=== PATIENT | male | born 1950 | race Caucasian/White ===

== ENCOUNTER 2020-11-04 09:12 | Emergency (ER) | payer MEDICARE, OTHER ==
[2020-11-04 09:50] LABS: CHLORIDE,CL 100 mmol/L (98-107); SODIUM,NA 137 mmol/L (136-145)
--- NOTE | 2020-11-04 10:26 | EDM.PDOC ---
ED HPI GENERAL MEDICAL PROBLEM - General Chief Complaint: Neuro Symptoms/Deficits Stated Complaint: STROKE CODE Time Seen by Provider: 11/04/20 09:18 Source of Information: Reports: Patient, EMS, Family - History of Present Illness INITIAL COMMENTS - FREE TEXT/NARRATIVE: Pt brought to ER via EMS with left sided weakness Began 2 days ago Last known well time was 11/01/20 at bedtime Woke up 11/02 with weakness and had difficulty walking Yesterday pt unable to support self in the evening and spent the night on the floor per Pt with left face droop and flaccid left side Has never seen a doctor but states his usual BP is 200 Onset: Gradual Duration: Day(s):, Getting Worse Location: Reports: Generalized ED ROS GENERAL - Review of Systems Review Of Systems: See Below Constitutional: Reports: No Symptoms HEENT: Reports: No Symptoms Respiratory: Reports: No Symptoms Cardiovascular: Reports: No Symptoms GI/Abdominal: Reports: No Symptoms Musculoskeletal: Reports: No Symptoms Skin: Reports: No Symptoms Neurological: Reports: Trouble Speaking, Difficulty Walking, Weakness, Change in Speech, Gait Disturbance ED EXAM, NEURO - Physical Exam Exam: See Below General Appearance: Alert, WD/WN, Mild Distress Eye Exam: Bilateral Eye: EOMI, PERRL Ears: Normal TMs Nose: Normal Inspection Throat/Mouth: Normal Oropharynx Head Exam: Atraumatic Neck: Supple Respiratory/Chest: Lungs Clear Cardiovascular: Regular Rate, Rhythm GI/Abdominal: Soft, Non-Tender Neurological: Alert, Oriented x 3, Other (Stroke scale 9 Pt with left face droop and flaccid left side) Extremities: Normal Inspection Psychiatric: Normal Affect Skin Exam: Warm, Dry, Intact Course - Orders/Labs/Meds Orders: Active Orders 24 hr Category Date Time Status EKG Documentation Completion [RC] ASDIRECTED Care 11/04/20 09:19 Active Head wo Cont [CT] Stat Exams 11/04/20 09:13 Taken Labs: Laboratory Tests 11/04/20 11/04/20 11/04/20 Range/Units 09:21 09: 09:21 WBC 9.0 (4.0-10.2) K/uL RBC 6.29 H (4.33-5.41) M/uL Hgb 16.7 (13.1-16.8) g/dL Hct 48.8 (39.0-49.0) % MCV 77.6 L (84.0-98.0) fL MCH 26.6 L (28.2-33.3) pg MCHC 34.2 (31.7-36.0) g/dL RDW 14.4 H (11.2-14.1) % Plt Count 172 (150-350) K/uL Neut % (Auto) 60.7 (45.0-80.0) % Lymph % (Auto) 26.2 (10.0-50.0) % [place] % (Auto) 10.0 (2.0-14.0) % Eos % (Auto) 2.8 (0.0-5.0) % Baso % (Auto) 0.3 (0.0-2.0) % Neut # (Auto) 5.48 (1.40-7.00) K/uL Lymph # (Auto) 2.37 (0.50-3.50) K/uL [place] # (Auto) 0.90 (0.00-1.00) K/uL Eos # (Auto) 0.25 (0.00-0.50) K/uL Baso # (Auto) 0.03 (0.00-0.20) K/uL PT 9.7 (9.5-12.0) SEC INR 1.0 Sodium 137 (136-145) mmol/L Potassium 3.9 (3.5-5.1) mmol/L Chloride 100 (98-107) mmol/L Carbon Dioxide 23.3 (21.0-32.0) mmol/L BUN 15 (7-18) mg/dL Creatinine 0.81 (0.51-1.17) mg/dL Est Cr Clr Drug Dosing TNP Estimated GFR (MDRD) > 60 mL/min Glucose 373 H (74-106) mg/dL Calcium 9.3 (8.5-10.1) mg/dL Magnesium 2.1 (1.8-2.4) mg/dL Total Bilirubin 1.4 H (0.2-1.0) mg/dL AST 17 (15-37) U/L ALT 30 (12-78) U/L Alkaline Phosphatase 77 (46-116) IU/L Troponin I 0.039 (0.000-0.056) ng/mL Total Protein 8.1 (6.4-8.2) g/dL Albumin 3.7 (3.4-5.0) g/dL - Re-Assessments/Exams Free Text/Narrative Re-Assessment/Exam: 11/04/20 10:[address] per radiologist no acute bleed D/W Dr Lyons Stroke Neurologist [facility] Will accept in transfer Departure - Departure Time of Disposition: 10:30 Disposition: DC/Tfer to Acute Hospital 02 Clinical Impression: Cerebrovascular accident (CVA) Qualifiers: CVA mechanism: unspecified Qualified Code(s): I63.9 - Cerebral infarction, unspecified - Discharge Information Referrals: PCP,Unknown [Primary Care Provider] - - My Orders Last 24 Hours: My Active Orders 11/04/20 09:13 Head wo Cont [CT] Stat 11/04/20 09:19 EKG Documentation Completion [RC] ASDIRECTED - Assessment/Plan Last 24 Hours: My Active Orders 11/04/20 09:13 Head wo Cont [CT] Stat 11/04/20 09:19 EKG Documentation Completion [RC] ASDIRECTED
== END 2020-11-04 10:53 ==
LOC: LL.ED 09:12
DX: I63.9 Cerebral infarction, unspecified (principal)
CPT/HCPCS: 36415; 70450; 80053; 83735; 84484; 85025; 85610; 93005; 99283; 99285-25

== ENCOUNTER 2023-09-14 13:09 | Emergency (ER) | payer MEDICARE, OTHER ==
[2023-09-14] MEDS ORDERED: Sodium Chloride 0.9% 10 ML Syringe FLUSH PRN (13:18)
[2023-09-14 13:37] LABS: BASOPHILS ABSOLUTE AUTO 0.03 K/uL (0.00-0.20); BASOPHILS PERCENT AUTO 0.4 % (0.0-2.0); EOSINOPHILS ABSOLUTE AUTO 0.46 K/uL (0.00-0.50); EOSINOPHILS PERCENT AUTO 5.5 % (0.0-5.0); HEMATOCRIT 37.7 % (39.0-49.0); HEMOGLOBIN 12.3 g/dL (13.1-16.8); LYMPHOCYTES ABSOLUTE AUTO 2.56 K/uL (0.50-3.50); LYMPHOCYTES PERCENT AUTO 30.7 % (10.0-50.0); MEAN CORPUSCULAR HGB CONC 32.6 g/dL (31.7-36.0); MEAN CORPUSCULAR VOLUME 85.7 fL (84.0-98.0); MONOCYTES ABSOLUTE AUTO 0.87 K/uL (0.00-1.00); MONOCYTES PERCENT AUTO 10.4 % (2.0-14.0); NEUTROPHILS ABSOLUTE AUTO 4.41 K/uL (1.40-7.00); PLATELET COUNT,PLT 141 K/uL (150-350); RED CELL DISTRIBUTION WIDTH 14.4 % (11.2-14.1); WHITE BLOOD CELL COUNT,WBC 8.3 K/uL (4.0-10.2)
[2023-09-14 14:05] LABS: ALBUMIN 3.5 g/dL (3.4-5.0); ANION GAP 9.1 meq/L (7-15); BILIRUBIN TOTAL 1.1 mg/dL (0.2-1.0); CARBON DIOXIDE,CO2 26.9 mmol/L (21.0-32.0); CREATININE 1.41 mg/dL (0.51-1.17); EST CRCL DRUG DOSING (CG) 42.11 mL/min; MAGNESIUM 2.3 mg/dL (1.8-2.4); POTASSIUM,K 4.2 mmol/L (3.5-5.1); PROTEIN TOTAL,TP 7.2 g/dL (6.4-8.2)
[2023-09-14 14:17] LABS: PROTHROMBIN TIME 9.8 SEC (9.0-11.1)
[2023-09-14] MEDS ORDERED: Clopidogrel 75 MG Tab PO ONE (14:22)
[2023-09-14] MEDS ORDERED: Clopidogrel 75 MG Tab ONE (14:37)
== END 2023-09-14 15:00 ==
LOC: LL.ED 13:09
DX: R29.818 Other symptoms and signs involving the nervous system (principal); I10 Essential (primary) hypertension; E78.00 Pure hypercholesterolemia, unspecified; K21.9 Gastro-esophageal reflux disease without esophagitis; E11.9 Type 2 diabetes mellitus without complications; Z86.16 Personal history of COVID-19; Z79.82 Long term (current) use of aspirin; Z79.84 Long term (current) use of oral hypoglycemic drugs; Z79.899 Other long term (current) drug therapy; Z86.73 Personal history of transient ischemic attack (TIA), and cerebral infarction without residual deficits
CPT/HCPCS: 36415; 70450; 71045; 80053; 83605; 83735; 83880; 84484; 85025; 85379; 85610; 85730; 93005; 93010; 99284; 99285; A9270-GY

== ENCOUNTER 2023-11-16 16:10 | Observation (INO) | payer MEDICARE ==
[2023-11-16] MEDS ORDERED: Sodium Chloride 0.9% 10 ML Syringe FLUSH PRN (16:24)
[2023-11-16 17:12] LABS: INFLUENZA A NAA NEGATIVE (NEGATIVE); INFLUENZA B NAA NEGATIVE (NEGATIVE); RESPIRATORY SYNCYTIAL VIR NAA NEGATIVE (NEGATIVE)
[2023-11-16 17:13] LABS: CORONAVIRUS COVID-19 NAA POSITIVE (NEGATIVE)
[2023-11-16 17:16] LABS: BASOPHILS ABSOLUTE AUTO 0.01 K/uL (0.00-0.20); BASOPHILS PERCENT AUTO 0.2 % (0.0-2.0); EOSINOPHILS ABSOLUTE AUTO 0.04 K/uL (0.00-0.50); EOSINOPHILS PERCENT AUTO 0.8 % (0.0-5.0); HEMATOCRIT 36.5 % (39.0-49.0); HEMOGLOBIN 12.1 g/dL (13.1-16.8); LYMPHOCYTES ABSOLUTE AUTO 0.66 K/uL (0.50-3.50); LYMPHOCYTES PERCENT AUTO 12.4 % (10.0-50.0); MEAN CORPUSCULAR HEMOGLOBIN 28.2 pg (28.2-33.3); MEAN CORPUSCULAR HGB CONC 33.2 g/dL (31.7-36.0); MEAN CORPUSCULAR VOLUME 85.1 fL (84.0-98.0); MONOCYTES PERCENT AUTO 20.6 % (2.0-14.0); NEUTROPHILS ABSOLUTE AUTO 3.52 K/uL (1.40-7.00); PLATELET COUNT,PLT 108 K/uL (150-350); RED BLOOD CELL COUNT 4.29 M/uL (4.33-5.41); WHITE BLOOD CELL COUNT,WBC 5.3 K/uL (4.0-10.2)
[2023-11-16 17:39] LABS: ALBUMIN 3.6 g/dL (3.4-5.0); ANION GAP 8.5 meq/L (7-15); BILIRUBIN TOTAL 0.9 mg/dL (0.2-1.0); CALCIUM 8.9 mg/dL (8.5-10.1); CARBON DIOXIDE,CO2 24.5 mmol/L (21.0-32.0); CREATININE 1.68 mg/dL (0.51-1.17); EST CRCL DRUG DOSING (CG) 35.34 mL/min; MAGNESIUM 2.2 mg/dL (1.8-2.4); POTASSIUM,K 4.1 mmol/L (3.5-5.1); PROTEIN TOTAL,TP 7.4 g/dL (6.4-8.2)
[2023-11-16] MEDS: Acetaminophen 325 MG Tab PO ONE (17:42)
[2023-11-16] MEDS: Sodium Chloride 0.9% 500 ML IV SCH (17:45)
[2023-11-16] MEDS ORDERED: Ondansetron 4 MG/2 ML SDV IVPUSH PRN (19:43)
[2023-11-16] MEDS: atorvaSTATin 40 MG Tab PO SCH (20:38)
[2023-11-16] MEDS: Finasteride 5 MG Tab PO SCH (20:38)
[2023-11-16] MEDS: Famotidine 20 MG Tab PO SCH (20:39)
[2023-11-16] MEDS: Carvedilol 25 MG Tab PO SCH (20:39)
[2023-11-17] MEDS: Acetaminophen 325 MG Tab PO PRN (01:06)
[2023-11-17 08:06] LABS: BASOPHILS ABSOLUTE AUTO 0.01 K/uL (0.00-0.20); BASOPHILS PERCENT AUTO 0.2 % (0.0-2.0); EOSINOPHILS ABSOLUTE AUTO 0.02 K/uL (0.00-0.50); EOSINOPHILS PERCENT AUTO 0.3 % (0.0-5.0); HEMATOCRIT 37.3 % (39.0-49.0); LYMPHOCYTES ABSOLUTE AUTO 1.44 K/uL (0.50-3.50); LYMPHOCYTES PERCENT AUTO 25.2 % (10.0-50.0); MEAN CORPUSCULAR HEMOGLOBIN 27.6 pg (28.2-33.3); MEAN CORPUSCULAR HGB CONC 32.2 g/dL (31.7-36.0); MEAN CORPUSCULAR VOLUME 85.9 fL (84.0-98.0); MONOCYTES ABSOLUTE AUTO 0.83 K/uL (0.00-1.00); MONOCYTES PERCENT AUTO 14.5 % (2.0-14.0); NEUTROPHILS ABSOLUTE AUTO 3.42 K/uL (1.40-7.00); NEUTROPHILS PERCENT AUTO 59.8 % (45.0-80.0); PLATELET COUNT,PLT 113 K/uL (150-350); RED BLOOD CELL COUNT 4.34 M/uL (4.33-5.41); RED CELL DISTRIBUTION WIDTH 14.1 % (11.2-14.1); WHITE BLOOD CELL COUNT,WBC 5.7 K/uL (4.0-10.2)
[2023-11-17 08:15] LABS: ANION GAP 8.1 meq/L (7-15); CALCIUM 8.7 mg/dL (8.5-10.1); CARBON DIOXIDE,CO2 23.9 mmol/L (21.0-32.0); CREATININE 1.73 mg/dL (0.51-1.17); EST CRCL DRUG DOSING (CG) 34.32 mL/min; POTASSIUM,K 3.9 mmol/L (3.5-5.1)
[2023-11-17] MEDS: Lisinopril 10 MG Tab PO SCH (08:16)
[2023-11-17] MEDS: Aspirin 81 MG Tab.Chew PO SCH (08:16)
[2023-11-17] MEDS: Glimepiride 2 MG Tab PO SCH (08:16)
[2023-11-17] MEDS: Nirmatrelvir/Ritonavir 150 MG/100 MG Dose Pack PO SCH (10:42)
== END 2023-11-17 16:20 | disposition home or self-care (01) ==
LOC: LL.ED 16:10 → LL.MS 19:09 → UNDOADMOB 19:09
PROVIDERS: ADMIT Emergency Medicine; ATTEND Emergency Medicine
DX: U07.1 COVID-19 (principal); I10 Essential (primary) hypertension; E11.9 Type 2 diabetes mellitus without complications; Z79.899 Other long term (current) drug therapy; E78.00 Pure hypercholesterolemia, unspecified
CPT/HCPCS: 0241U; 36415; 71045; 80048; 80053; 83605; 83735; 83880; 85025; 96360; 97161-GP; 99285-25; A9270-GY; J7040

== ENCOUNTER 2025-02-09 21:27 | Emergency (ER) | payer MEDICARE | END 2025-02-09 23:10 | disposition EXP | LOC: LL.ED 21:27 | DX: I46.9 Cardiac arrest, cause unspecified (principal); I10 Essential (primary) hypertension; E78.00 Pure hypercholesterolemia, unspecified; K21.9 Gastro-esophageal reflux disease without esophagitis; E11.9 Type 2 diabetes mellitus without complications; E66.9 Obesity, unspecified; Z86.16 Personal history of COVID-19; Z79.82 Long term (current) use of aspirin; Z79.899 Other long term (current) drug therapy | CPT/HCPCS: 92950; 99285-25 ==